=== PATIENT | female | born 1970 | race African-American/Black ===

== ENCOUNTER 2022-11-08 13:56 | Outpatient (CLI) | payer OTHER | END 2022-11-08 13:57 | disposition home or self-care (01) | LOC: NAV RAD 13:56 | PROVIDERS: ATTEND Family Medicine | DX: M19.91 Primary osteoarthritis, unspecified site (principal); M19.92 Post-traumatic osteoarthritis, unspecified site; Z86.16 Personal history of COVID-19 | CPT/HCPCS: 71046 ==